=== PATIENT | female | born 1975 | race Caucasian/White ===

== ENCOUNTER 2016-08-18 23:23 | Emergency (ER) | payer SELFPAY ==
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
--- OUTSIDE RECORDS SUMMARY | 2016-08-19 00:38 | XMS REPORT | Continuity of Care Document ---
:1975 Author Organization [employer] [place] [address] Care Team Providers Name Role Phone Unavailable Primary Care Provider Unavailable Source Comments This disclosure is being made pursuant to the [employer] program and maynot contain all information available regarding this patient.[employer] Active Allergies and Adverse Reactions Not on File Current Medications Be aware that medications may not be up to date as of this document. Alwaysverify current medications with the patient. Not on file Active Problems Not on file Social History Tobacco Use Types Packs/Day Years Used Date Former Smoker Last Filed Vital Signs Vital Sign Reading Time Taken Blood Pressure 132/60 12/10/2009 1:50 PM CDT Pulse 68 12/10/2009 1:50 PM CDT Temperature - - Respiratory Rate 18 12/10/2009 1:50 PM CDT Height 1.575 m (5' 2") 08/06/2009 2:57 PM CDT Weight 57.607 kg (127 lb) 09/03/2009 2:40 PM CDT Body Mass Index 23.22 09/03/2009 2:40 PM CDT Oxygen Saturation - - Plan of Care Health Maintenance Due Date Last Done Comments Tetanus/Pertussis (1 - Tdap) 1992 Pap Smear 1994 Influenza Immunization (#1) 2015 Results from Last 3 Months Not on file
[2016-08-19] MEDS ORDERED: KETOROLAC TROMETHAMINE 60 MG/2 ML VIAL IM ONE ×2 (02:33→02:34)
[2016-08-19 03:01] VITALS: BP 122/76
== END 2016-08-19 02:54 | disposition home or self-care (01) ==
LOC: ER 23:23
DX: T14.8 Other injury of unspecified body region (principal); Y04.2XXA Assault by strike against or bumped into by another person, initial encounter; Y93.9 Activity, unspecified; Y92.9 Unspecified place or not applicable; S50.11XA Contusion of right forearm, initial encounter; S13.9XXA Sprain of joints and ligaments of unspecified parts of neck, initial encounter

== ENCOUNTER 2016-09-03 08:16 | Emergency (ER) | payer SELFPAY ==
[2016-09-03] MEDS ORDERED: ALPRAZolam 0.25 MG TABLET PO ONE (08:51)
[2016-09-03] MEDS ORDERED: ALPRAZolam 0.25 MG TABLET ONE (08:58)
--- NOTE | 2016-09-03 08:59 | ERNOTE ---
Medical Problem HPI - General Chief Complaint: Anxiety Time Seen by Provider: 09/03/16 08:42 Source: patient Exam Limitations: no limitations - Immun/Allergies/Home Medications Immunizations: IMMUNIZATION HX Immunizations Up to Date Yes History of Influenza Vaccine No Hx Pneumococcal Vaccination No Allergies/Adverse Reactions: Allergies lorazepam [From Ativan] Allergy (Verified 09/03/16 08:29) tramadol Allergy (Verified 09/03/16 08:29) Home Medications: HOME MEDICATIONS Hyoscyamine Sulfate [Levsin] 0.125 mg PO QID PRN 08/18/16 [Last Taken Unknown] Nortriptyline HCl [Pamelor] 25 mg PO QID 08/18/16 [Last Taken Unknown] Omeprazole 20 mg PO BID 08/18/16 [Last Taken Unknown] Ondansetron [Zofran Odt] 4 mg PO QID PRN 08/18/16 [Last Taken Unknown] Prochlorperazine [Compazine] 25 mg RC QID PRN 08/18/16 [Last Taken Unknown] Clonidine HCl [Clonidine HCl ER] 0.5 tab PO TID #90 tab.er.12h 09/03/16 [Last Taken Unknown] clonazePAM [Klonopin] 1 mg PO TID PRN #20 tablet 09/03/16 [Last Taken Unknown] - History of Present History Narrative: Patient woke up this morning with chest pain, heart racing and generalized muscle cramping. she has a history of anxiety has been on klonazepam 1mg tid for five years and ran out 4-5days ago as she is in transition from [place] to [facility]. She denies any recent illness, has not felt like this before, smoked THC last a few days ago, ETOH about once a week also a few days ago Date (Duration): 09/03/16 Time (Timing): 06:00 Review of Systems - Review of Systems Constitutional: Absent: recent illness, fever EYE: Absent: vision changes ENT: Absent: ear pain, nose congestion, sore throat Respiratory: Absent: shortness of breath, cough Cardiology: Present: chest pain, palpitations Gastrointestinal/Abdominal: Present: abdominal pain. Absent: nausea, vomiting Genitourinary: Absent: frequency, dysuria Neurological: Absent: headache - Patient's Past Medical History Patient History - Medical: Anxiety, Depression, GERD, Migraines, Rheumatoid Arthritis - in remission, off meds Patient History - Cardiac/Respiratory: No pertinent hx Patient History - Cancer: No Hx of Cancer Patient History - Surgical Procedures: EGD Patient History - Other: None LMP (females 10-50): now - Social History Living Situations: home Abuse History: No History of abuse Psych History: Hx of Anxiety, Hx of Depression Smoking Status: Current every day smoker Have you smoked in the past 12 months: Yes Alcohol Use: occasionally Drug Use: marijuana - Immunizations Immunizations Up to Date: Yes Hx Pneumococcal Vaccination: No History of Influenza Vaccine: No Physical Exam - Physical Exam General Appearance: Present: wd/wn, alert, no apparent distress, anxious Eye Exam: Normal inspection: bilateral, PERRL: bilateral Ears, Nose, Throat: Present: normal pharynx Respiratory: Present: no respiratory distress, normal breath sounds, no accessory muscle use, chest nontender, lungs clear Cardiovascular/Chest: Present: no murmur, normal peripheral pulses, tachycardia Gastrointestinal/Abdominal: Present: normal bowel sounds, nondistended, soft, tenderness - mild suprapubic (started menses yesterday) Extremity Exam: Present: no edema Neurological Exam: Present: alert, oriented, normal mood/affect Skin Exam: Present: normal color, warm/dry ED Progress - Results and Orders Patient's Lab Results:: I have reviewed the patient's lab results. - Vital Signs Patient's Vital Signs:: I have reviewed the patient's vital signs. Vital Signs: Vital Signs 09/03/16 08:20 Temperature 36.8 C Pulse Rate 120 H Respiratory 14 Rate Blood Pressure 144/99 O2 Sat by Pulse 98 Oximetry - EKG EKG: NSR - sinus tachy, other - poor quality, no acute changes EKG read: Interp. by me - Progress/Reassessment Chief Complaint: Anxiety Progress Note-Subjective: 09/03/16 09:52 patient feeling much better after alprazolam, discussed test results and follow up Departure - Departure Clinical Impression: Anxiety Disposition: Home self-care Condition: Good Instructions: Panic Attacks, [id number] Additional Instructions: get the paperwork from the psychiatry office to start the application process work on switching your insurance to [place] Referrals: Yesi Orozco WEB ART DIRECTOR [[facility]] - Prescriptions: Clonidine HCl [Clonidine HCl ER] 0.5 tab PO TID #90 tab.er.12h clonazePAM [Klonopin] 1 mg PO TID PRN #20 tablet PRN Reason: Anxiety
[2016-09-03 09:10] LABS: Hematocrit 40.5 % (37.0-47.0); Hemoglobin 13.6 gm/dL (12.5-16.0); Mean Cell Volume 89.6 fl (78-100); Mean Corpuscular Hemoglobin 30.1 pg (27-31); Mean Corpuscular Hgb Conc 33.6 g/dl (32-36); Mean Platelet Volume 9.7 fl (6.0-9.5); Neutrophil # 7.4 K/mm3 (1.3-6.0); Neutrophil % 71.7 % (42-75.0); Platelet Count 364 K/mm3 (150-450); Red Blood Count 4.52 M/mm3 (4.2-5.4); Red Cell Distribution Width 14.1 % (11.5-14.0); White Blood Count 10.3 K/mm3 (4.0-10.5)
[2016-09-03 09:28] LABS: ALT 19 U/L (19-67); AST 17 U/L (0-48); Albumin * 3.8 gm/dl (3.4-5.0); Alkaline Phosphatase * 79 U/L (50-170); Anion Gap 11.4 mmol/L (6.8-13.8); BUN/Creatinine Ratio 20.5 (9.0-21.6); Bilirubin, Total 0.3 mg/dL (0.0-1.1); Blood Urea Nitrogen 17 mg/dL (3-23); Ca. Corrected For Albumin 8.7 mg/dL (8.4-10.2); Calcium * 8.9 mg/dL (7.9-10.9); Carbon Dioxide 27.3 mmol/L (24-32.6); Chloride 104 mmol/L (97-106); Glucose * 107 mg/dL (70-110); Potassium 3.7 mmol/L (3.4-4.6); Sodium 139 mmol/L (132-142); Total Protein 7.7 gm/dL (6.2-8.2); Troponin I Less than 0.017 ng/ml (0.00-0.10)
--- OUTSIDE RECORDS SUMMARY | 2016-09-03 09:35 | XMS REPORT | Continuity of Care Document ---
:1975 Author Organization [employer] [place] [address] Care Team Providers Name Role Phone Unavailable Primary Care Provider Unavailable Source Comments This disclosure is being made pursuant to the [employer] program and maynot contain all information available regarding this patient.[facility] Active Allergies and Adverse Reactions Not on [...]
[2016-09-03 09:47] VITALS: BP 93/58
== END 2016-09-03 10:20 | disposition home or self-care (01) ==
LOC: ER 08:16
DX: F41.9 Anxiety disorder, unspecified (principal); F17.200 Nicotine dependence, unspecified, uncomplicated; G43.909 Migraine, unspecified, not intractable, without status migrainosus
CPT/HCPCS: 36415; 80053; 84484; 85025; 93005; 99284; G0481

== ENCOUNTER 2016-11-18 12:26 | Emergency (ER) | payer MEDICAID ==
[2016-11-18] MEDS ORDERED: diphenhydrAMINE HCL 50 MG/ML VIAL IM ONE (12:46)
[2016-11-18] MEDS ORDERED: ALPRAZolam 0.25 MG TABLET PO ONE (12:46)
[2016-11-18] MEDS ORDERED: diphenhydrAMINE HCL 50 MG/ML VIAL ONE (12:52)
[2016-11-18] MEDS ORDERED: ALPRAZolam 0.25 MG TABLET ONE (12:52)
--- NOTE | 2016-11-18 12:53 | ERNOTE ---
Psychological HPI - Date Date of Service: 11/18/16 - General Chief Complaint: Anxiety Source: Reports: patient Exam Limitations: Reports: no limitations - Immun/Allergies/Home Medications Allergies/Adverse Reactions: Allergies lorazepam [From Ativan] Adverse Reaction (Intermediate, Verified 11/18/16 12:56) Other hallications tramadol Adverse Reaction (Mild, Verified 11/18/16 12:56) Other tremors Home Medications: HOME MEDICATIONS Hyoscyamine Sulfate [Levsin] 0.125 mg PO QID PRN 08/18/16 [Last Taken Unknown] Nortriptyline HCl [Pamelor] 25 mg PO QID 08/18/16 [Last Taken Unknown] Omeprazole 20 mg PO BID 08/18/16 [Last Taken Unknown] Ondansetron [Zofran Odt] 4 mg PO QID PRN 08/18/16 [Last Taken Unknown] Prochlorperazine [Compazine] 25 mg RC QID PRN 08/18/16 [Last Taken Unknown] Clonidine HCl [Clonidine HCl ER] 0.5 tab PO TID #90 tab.er.12h 09/03/16 [Last Taken Unknown] clonazePAM [Klonopin] 1 mg PO TID PRN #20 tablet 09/03/16 [Last Taken Unknown] hydrOXYzine HCL [Atarax] 25 mg PO Q4H PRN #40 tab 11/18/16 [Last Taken Unknown] - History of Present Illness Narrative: Pt. comes in with c/o increased anxiety for three months. pt. [place] and has been unable to establish with a new physician during that time and is unable to get to [facility] to see her current psychiatrist. Pt. states that when she realized that she was not going to go to her provider anymore that she weaned herself off of her prescribed medications. Pt. states that as she weaned herself she developed muscle aches, cramping, anxiety, and tremors. Pt. denies any prehospital treatment, alleviating factors, or aggravating factors. Time Seen by Provider: 11/18/16 12:39 Review of Systems - Review of Systems Constitutional: Present: diaphoresis. Absent: recent illness, fever, chills, weakness, fatigue, malaise EYE: Present: no symptoms reported ENT: Present: no symptoms reported Respiratory: Present: shortness of breath. Absent: cough, wheezing Cardiology: Present: no symptoms reported. Absent: chest pain, palpitations, edema Gastrointestinal/Abdominal: Present: no symptoms reported. Absent: nausea, vomiting, diarrhea Genitourinary: Present: no symptoms reported Musculoskeletal: Present: muscle pain - generalized, joint pain - generalized Skin: Present: no symptoms reported. Absent: rash, change in color Neurological: Present: no symptoms reported. Absent: headache, dizziness/light- headedness, numbness, tingling All Other Systems: All systems neg except as marked - Patient's Past Medical History Patient History - Medical: Anxiety, Depression, GERD, Migraines, Rheumatoid Arthritis Patient History - Cardiac/Respiratory: No pertinent hx Patient History - Cancer: No Hx of Cancer Patient History - Surgical Procedures: EGD Patient History - Other: None LMP (Calendar): 11/04/16 - Social History Living Situations: home Abuse History: No History of abuse Psych History: Hx of Anxiety, Hx of Depression Smoking Status: Current every day smoker Have you smoked in the past 12 months: Yes Alcohol Use: rarely Drug Use: none - Immunizations Immunizations Up to Date: Yes Hx Pneumococcal Vaccination: No History of Influenza Vaccine: No Psychological Exam - Exam General Appearance: Present: wd/wn, alert, no apparent distress Head Exam: Present: normal inspection, no evidence of injury Neurological: Present: alert, cone picker II-XII nml as tested, agitated, anxious Thoughts/Hallucinations: Present: obsessive, paranoid Behavior/Eye Contact/Speech: Present: good eye contact, increased rate of speech ENT Exam normal except (see below): Yes Neck: Present: normal inspection, nontender. Absent: lymphadenopathy (R), lymphadenopathy (L) Respiratory: Present: no respiratory distress, normal breath sounds, no accessory muscle use, chest nontender, lungs clear Cardiovascular/Chest: Present: no murmur, normal peripheral pulses, tachycardia Gastrointestinal/Abdominal: Present: normal bowel sounds, nontender Back Exam: Present: normal inspection, normal range of motion, no CVA tenderness , no vertebral tenderness Extremity Exam: Present: normal inspection, non-tender, normal range of motion, no edema Skin Exam: Present: normal color, warm/dry, no cyanosis ED Progress - Results and Orders Patient's Lab Results:: I have reviewed the patient's lab results. Results and Orders: Positive for marijuana - Vital Signs Patient's Vital Signs:: I have reviewed the patient's vital signs. Vital Signs: Vital Signs 11/18/16 12:32 Temperature 36.8 C Pulse Rate 132 H Respiratory 20 Rate Blood Pressure 114/82 O2 Sat by Pulse 98 Oximetry - Progress/Reassessment Chief Complaint: Anxiety Departure Clinical Impression: Anxiety - Departure Disposition: Home self-care Condition: Good Instructions: Panic Attacks, [id number] Additional Instructions: Please take Ibuprofen for muscle pain and atarax for anxiety. You must establish with PCP of your choice and stop using marijuana. Prescriptions: hydrOXYzine HCL [Atarax] 25 mg PO Q4H PRN #40 tab PRN Reason: Itching
[2016-11-18 13:07] LABS: Hematocrit 47.1 % (37.0-47.0); Hemoglobin 16.2 gm/dL (12.5-16.0); Mean Cell Volume 88.2 fl (78-100); Mean Corpuscular Hemoglobin 30.3 pg (27-31); Mean Corpuscular Hgb Conc 34.4 g/dl (32-36); Mean Platelet Volume 9.8 fl (6.0-9.5); Neutrophil # 12.2 K/mm3 (1.3-6.0); Neutrophil % 84.1 % (42-75.0); Platelet Count 390 K/mm3 (150-450); Red Blood Count 5.34 M/mm3 (4.2-5.4); Red Cell Distribution Width 14.2 % (11.5-14.0); White Blood Count 14.5 K/mm3 (4.0-10.5)
[2016-11-18 13:22] LABS: Urine Bilirubin Negative (NEGATIVE); Urine Ketone Large mg/dL (NEGATIVE); Urine Protein Negative (NEGATIVE); Urine Urobilinogen Normal (NORMAL)
[2016-11-18 13:29] LABS: ALT 23 U/L (19-67); AST 24 U/L (0-48); Albumin * 4.6 gm/dl (3.4-5.0); Alkaline Phosphatase * 121 U/L (50-170); Anion Gap 16.2 mmol/L (6.8-13.8); BUN/Creatinine Ratio 11.5 (9.0-21.6); Bilirubin, Total 0.6 mg/dL (0.0-1.1); Blood Urea Nitrogen 11 mg/dL (3-23); Ca. Corrected For Albumin 8.7 mg/dL (8.4-10.2); Calcium * 9.5 mg/dL (7.9-10.9); Carbon Dioxide 26.1 mmol/L (24-32.6); Chloride 98 mmol/L (97-106); Glucose * 111 mg/dL (70-110); Potassium 3.3 mmol/L (3.4-4.6); Sodium 137 mmol/L (132-142); TSH * 1.076 uIU/mL (0.358-3.74); Total Protein 8.9 gm/dL (6.2-8.2)
[2016-11-18 13:32] LABS: Urine Appearance Clear; Urine Blood 5 /ul (NEGATIVE); Urine Color Yellow; Urine Nitrite Positive (NEGATIVE); Urine WBC 0-5 /hpf (0-5)
[2016-11-18 13:33] LABS: Urine Bacteria 3+
[2016-11-18 13:35] LABS: Cocaine Ur Negative (NEGATIVE); Urine Barbiturate Negative (NEGATIVE); Urine Benzodiazepines Negative (NEGATIVE); Urine Opiates Negative (NEGATIVE); Urine PCP Negative (NEGATIVE)
[2016-11-18 13:41] VITALS: BP 132/94
[2016-11-18 13:42] LABS: Urine THC Positive (NEGATIVE)
== END 2016-11-18 13:55 | disposition home or self-care (01) ==
LOC: ER 12:26
DX: F41.9 Anxiety disorder, unspecified (principal); F17.200 Nicotine dependence, unspecified, uncomplicated
CPT/HCPCS: 36415; 80053; 80307; 81001; 84443; 85025; 87077; 87086; 87186; 96372; 99284; G0481

== ENCOUNTER 2016-12-05 00:26 | Emergency (ER) | payer MEDICAID ==
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
[2016-12-05 03:27] VITALS: BP 102/72
[2016-12-05] MEDS ORDERED: HYDROcodone/ACETAMINOPHEN 1 EACH TABLET PO ONE ×2 (03:28→03:29)
[2016-12-05] MEDS ORDERED: HYDROcodone/ACETAMINOPHEN 1 EACH TABLET ONE (03:29)
== END 2016-12-05 03:35 ==
LOC: ER 00:26
DX: S02.80XA Fracture of other specified skull and facial bones, unspecified side, initial encounter for closed fracture (principal); K21.9 Gastro-esophageal reflux disease without esophagitis; M06.9 Rheumatoid arthritis, unspecified; F41.8 Other specified anxiety disorders; F17.200 Nicotine dependence, unspecified, uncomplicated; Y04.2XXA Assault by strike against or bumped into by another person, initial encounter; Y92.009 Unspecified place in unspecified non-institutional (private) residence as the place of occurrence of the external cause